=== PATIENT | male | born 1965 | race Caucasian/White ===

== ENCOUNTER 2020-02-09 15:22 | Outpatient (CLI) | payer BC, SELFPAY ==
--- NOTE | 2020-02-09 15:33 | ECG_ITS ---
Measurements Intervals [place] Rate: 69 P: 56 NE: 154 QRS: 37 QRSD: 93 T: 28 QT: 376 QTc: 405 Interpretive Statements SINUS RHYTHM NORMAL ECG Electronically Signed On 02-09-2020 15:55:03 CDT by Austin Larsen D.O.
== END 2020-02-09 15:23 | disposition home or self-care (01) ==
PROVIDERS: PCP Internal Medicine; Visit Provider Nurse Practitioner
DX: R07.9 Chest pain, unspecified (principal)
CPT/HCPCS: 93005

== ENCOUNTER 2020-02-14 01:25 | Day surgery (SDC) | payer BC, SELFPAY ==
[2020-02-09 16:11] VITALS: BMI 28.4
[2020-02-14 10:21] VITALS: BP 133/83; PULSE 66; RESP 16; TEMP 36.6; O2SAT 97
[2020-02-14] MEDS: LACTATED RINGERS 1,000 ML 150 ML IV CONT (10:36)
--- NOTE | 2020-02-14 10:39 | WPDANESEPPF ---
Anes - Initial Pre Proc Eval Procedure: Operation Date: 02/14/20 11:30 Proposed Procedures p Esophagogastroduodenoscopy - Asa Balbuena MD Date/Time: 02/14/20 10:39 Surgeon: Asa Balbuena MD Pre Op Diagnosis: dysphagia Patient Data Age: 55 Gender: M Height: 5 ft 10 in Weight: 88.8 kg Last Vital Signs Temp 36.6 C 02/14/20 10:21 Pulse 66 02/14/20 10:21 Resp 16 02/14/20 10:21 BP 133/83 02/14/20 10:21 Pulse Ox 97 02/14/20 10:21 Allergies Allergy/AdvReac Type Severity Reaction Status Date / Time hydrocodone Allergy Severe sweats/bland Verified 02/14/20 10:20 ucination Home Medications Medication Instructions Recorded Confirmed Type cholecalciferol (vitamin D3) 4,000 unit PO DAILY 02/09/20 02/14/20 History [Vitamin D3] meg [id number]-tea 1 tablet PO DAILY 02/09/20 02/14/20 History [Apple Cider Vinegar Plus] Patient hx anesthesia problems: none Family hx anesthesia problems: none Anes - Eval Final PreProcedure Day of Procedure 02/14/20 10:39 Patient weight: overweight Heart: regular rate and rhythm Lungs: clear to auscultation Airway: Mallampati scale Neurological: alert and oriented Last oral intake: >/= 8 hours ASA classification: II Emergent: no Anesthetic plan: proceed Anesthesia type and monitoring: general GIVS and standard monitoring Informed Consent: The patient's anesthetic plan and its attendant risks and benefits were discussed with the patient/family/POA. Questions were solicited and answers provided to the satisfaction of the patient/family/POA.
--- NOTE | 2020-02-14 10:57 | PM.HPGS ---
History of Present Illness History of Present Illness Consent: Risks, benefits, and alternatives have been discussed and questions answered. Patient agrees to proceed with procedure. Chief complaint: dysphagia Narrative: Christian Vega is a 55 year old W male referred for gastroscopy secondary to approximately 4-6 month history of intermittent substernal chest discomfort associated with intermittent solid food dysphagia. He was treated [id number] Nexium for couple weeks she symptoms resolved. He stop this symptoms reoccurred is post back on this. No weight loss. Nonsmoker no significant alcohol intake. [facility] Surgical History Surgical History (Updated 02/14/20 @ 10:59 by Asa Balbuena MD) Status post arthroscopy of left knee Status post cholecystectomy Meds Home Medications and Allergies Home Medications Medication Instructions Recorded Confirmed Type cholecalciferol (vitamin D3) 4,000 unit PO DAILY 02/09/20 02/14/20 History [Vitamin D3] meg [id number]-[id number]-tea 1 tablet PO DAILY 02/09/20 02/14/20 History [Apple Cider Vinegar Plus] Allergies Allergy/AdvReac Type Severity Reaction Status Date / Time hydrocodone Allergy Severe sweats/bland Verified 02/14/20 10:20 ucination Vital Signs Vital Signs - 24 hr 02/14/20 10:21 Temperature 36.6 C Pulse Rate 66 Respiratory Rate 16 Blood Pressure 133/83 Pulse Oximetry 97 Exam Const: Orientation/consciousness: patient oriented x3 Resp: Auscultation: clear to auscultation bilaterally Cardio: Rate: regular rate Rhythm: regular rhythm Heart sounds: no murmurs GI: GI Palp: Yes Soft to palpation, No Tenderness to palpation present (GI), Yes No hepatosplenomegaly present and No Palpable mass present Auscultation: normal bowel sounds Neuro: General: patient oriented x3 and no focal motor deficits Extrem: General: no pedal edema Assessment and Plan Additional Plan EGD for evaluation of substernal chest pain and intermittent dysphagia
[2020-02-14 11:39] VITALS: BP 92/55; PULSE 79; RESP 18; O2SAT 95
[2020-02-14 11:49] VITALS: BP 106/69; PULSE 68; RESP 22; O2SAT 97
[2020-02-14 11:59] VITALS: BP 115/67; PULSE 63; RESP 14; O2SAT 97
== END 2020-02-14 12:12 | disposition home or self-care (01) ==
PROVIDERS: PCP Internal Medicine; Visit Provider Internal Medicine Gastroenterology
PROC: 0DJ08ZZ Inspection of Upper Intestinal Tract, Via Natural or Artificial Opening Endoscopic (ICD-10-PCS; CPT 43235; principal; 2020-02-14 11:30)
DX: K22.2 Esophageal obstruction (principal); K44.9 Diaphragmatic hernia without obstruction or gangrene; K21.0 Gastro-esophageal reflux disease with esophagitis; K29.50 Unspecified chronic gastritis without bleeding
CPT/HCPCS: 43239; 87081; 88305; J2704; J7120